=== PATIENT | female | born 1990 | race Caucasian/White ===

== ENCOUNTER 2023-02-04 02:28 | Inpatient (IN) ==
[2023-02-04] MEDS ORDERED: LIDOCAINE 1% LOCAL 20 ML VIAL INFIL PRN (04:37)
[2023-02-04] MEDS ORDERED: OXYTOCIN 30 UNITS/500 ML BAG IV PRN ×3 (04:37→18:11)
--- NOTE | 2023-02-04 08:10 | History & Physical Report ---
Date of Service February 04, 2023 Assessment & Plan (1) : Plan Will start Oxytocin Admission and Anticipated Discharge Date Admission Date: February 04, 2023 History of Present Illness Chief Complaint: spontaneous rupture of membranes Primary Care Provider: NO PCP 32 F P0000 at 38.5 weeks with SROM clear fluid at 0111 this morning and onset of contractions. GBS is negative Allergies Allergy/AdvReac Type Severity Reaction Status Date / Time [place] nut Allergy Mild Hives Verified 02/04/23 02:53 tree nut Allergy Unknown tree nuts Verified 12/28/21 08:52 = hives No Known Drug Allergies Allergy Hives Uncoded 02/04/23 02:53 Home Medications Medication Instructions Recorded Confirmed Type Vitron-C 1 tab PO BID 02/04/23 02/04/23 History hvapocew-[id number] 1 mg 1 tab PO DAILY 02/04/23 02/04/23 History tablet sertraline 25 mg tablet 25 mg PO DAILY 02/04/23 02/04/23 History Patient History Medical History DVT (deep vein thrombosis) in Surgical History History of tooth extraction Family History Family/Other No significant family history Denies family history of Colon cancer Ovarian cancer Diabetes Myocardial infarction Breast cancer Social History Smoking Status: Never smoker Hx Alcohol Use: No Hx Substance Use: No Preferred Language: Macedonian Communication Ability: Effective Signal Fitter Required: No Beliefs That Will Affect Care: None marital status: Current Living Situation: Spouse Other Information That Helps Us Care for You: No Feels Safe at Home: Yes Safety Concerns: Feels Safe At This Time Assistive Devices: None OB History primip PLEAT TAPER History neg Review of Systems All systems reviewed & are unremarkable except as noted in HPI & below Physical Exam Constitutional: WD/WN, vitals as above Eyes: PERRL, conjunctivae normal, anicteric sclerae Cardiovascular: RRR, no murmur, no edema Gastrointestinal (Abdomen): normal bowel sounds, soft, nontender, no hepatosplenomegaly Musculoskeletal: Extremities: extremities normal to inspection Skin: no rashes, warm and dry Neurologic: patellar DTR's 2+ bilat, sensation intact Psychiatric: A+Ox3, euthymic affect Genitourinary: no vaginal lesions, no adnexal mass Manual OB Exam: + cervical dilation 1 cm and 2 cm, + cervical effacement 70%, + station high and + amniotic fluid clear OB Exam Monitor Tracing: + external FHT monitor used, + external uterine monitor used, + category I and + normal FHT variability cervix posterio/soft Results & Data Vital Signs (Past 12 Hours) Vital Signs Temp Pulse Resp BP 02/04/23 06:43 37.2 C 02/04/23 05:00 37.0 C 02/04/23 02:56 37.0 C 18 02/04/23 07:50 36.8 C 02/04/23 06:45 67 116/75 02/04/23 02:50 67 131/82 Code Status & VTE Plan VTE Prophylaxis Plan VTE Prophylaxis will be ordered: No Monitoring External Monitor Cat 1
[2023-02-04] MEDS: LACTATED RINGER'S 1,000 ML IV PRN ×3 (08:16→17:17)
[2023-02-04 09:29] LABS: Hematocrit (blood only) 32.6 % (37.0-47.0); Mean Corpuscular Volume 89.3 fL (80.0-100.0); Mean Platelet Volume 9.4 fL (9.4-12.4); Platelet Count 199 K/uL (130-400); RDW Coefficient of Variation 12.4 % (11.5-14.5); RDW Standard Deviation 40.3 fL (36.4-46.3); Red Blood Count 3.65 M/uL (4.20-5.40); White Blood Count 11.09 K/ul (4.8-10.8)
[2023-02-04 09:31] LABS: Hemoglobin 11.5 g/dl (12.0-16.0)
[2023-02-04 09:32] LABS: Mean Corpuscular Hemoglobin 32.4 pg (25.0-34.0); Mean Corpuscular Hgb Conc 35.9 g/dL (32.0-36.0)
[2023-02-04] MEDS ORDERED: BUTORPHANOL TARTRATE 1 MG/ML VIAL IV PRN (10:45)
[2023-02-04] MEDS ORDERED: ePHEDrine sulfate 50 MG/ML AMP ONE (13:06)
[2023-02-04] MEDS ORDERED: fentaNYL citrate PF 100 MCG/2 ML VIAL ONE (13:06)
[2023-02-04] MEDS ORDERED: BUPIVACAINE 0.25% PF 30 ML VIAL ONE (13:07)
[2023-02-04] MEDS ORDERED: LIDOCAINE 2%/EPINEPHRINE 1:200,000 20 ML PF ONE (13:07)
[2023-02-04] MEDS ORDERED: SODIUM CHLORIDE 0.9% PF INJ 10 ML VIAL ONE (13:07)
[2023-02-04] MEDS ORDERED: fentaNYL 2MCG/ML ROPIVACAINE 1.25MG/ML 100 ML BAG EPI ONE (13:08)
[2023-02-04] MEDS ORDERED: NALOXONE HCL 1 MG in SODIUM CHLORIDE 0.9% 1000ML 1,000 ML IV PRN (13:37)
[2023-02-04] MEDS ORDERED: fentaNYL citrate PF 100 MCG/2 ML VIAL EPI PRN (13:37)
[2023-02-04] MEDS ORDERED: ePHEDrine sulfate 50 MG/ML AMP IV PRN (13:37)
[2023-02-04] MEDS ORDERED: SODIUM CHLORIDE 0.9% PF INJ 10 ML VIAL EPI STA (13:37)
[2023-02-04] MEDS ORDERED: fentaNYL citrate PF 100 MCG/2 ML VIAL EPI STA (13:37)
[2023-02-04] MEDS ORDERED: LIDOCAINE 2% MPF LOCAL 5 ML VIAL EPI PRN (13:37)
[2023-02-04] MEDS ORDERED: NALOXONE HCL 0.4 MG/1 ML VIAL/CARP IV PRN (13:37)
[2023-02-04] MEDS ORDERED: BUPIVACAINE 0.25% PF 30 ML VIAL EPI STA (13:37)
[2023-02-04] MEDS ORDERED: ROPIVACAINE 0.5% PF 5 MG/ML 20 ML VIAL EPI PRN (13:37)
[2023-02-04] MEDS ORDERED: ONDANSETRON INJ 2 MG/ML 2 ML VIAL IV PRN (13:37)
[2023-02-04] MEDS ORDERED: BUPIVACAINE 0.25% PF 30 ML VIAL EPI PRN (13:37)
[2023-02-04] MEDS ORDERED: NALBUPHINE HCL INJ 10 MG/ML AMP IV PRN (13:37)
[2023-02-04] MEDS ORDERED: fentaNYL 2MCG/ML ROPIVACAINE 1.25MG/ML 100 ML BAG EPI PRN (13:37)
[2023-02-04] MEDS ORDERED: SODIUM CHLORIDE 0.9% PF INJ 10 ML VIAL EPI PRN (13:37)
[2023-02-04] MEDS ORDERED: LIDOCAINE 2%/EPINEPHRINE 1:200,000 20 ML PF EPI STA (13:37)
[2023-02-04] MEDS ORDERED: diphenhydrAMINE 50 MG/ML VIAL IV PRN (13:37)
--- NOTE | 2023-02-04 13:37 | Anesthesiology Consultation ---
Date of Service February 04, 2023 Assessment & Plan Chart Review Chart Review: Patient NOT seen in Pre Admission Testing and Acceptable Risk for Labor Epidural Consults Requested none ASA ASA2 Proposed Anesthesia Anesthesia Type: Labor Epidural Risk / Benefits Reviewed With: PT / POA / Parent / Guardian, Accepts Plan and Informed Consent Obtained History Height/Weight Height: 5 ft 6 in Weight: 83.007 kg Allergies Allergy/AdvReac Type Severity Reaction Status Date / Time [place] nut Allergy Mild Hives Verified 02/04/23 02:53 tree nut Allergy Unknown tree nuts Verified 12/28/21 08:52 = hives No Known Drug Allergies Allergy Hives Uncoded 02/04/23 02:53 Medications Home Medications Medication Instructions Recorded Confirmed Last Taken Vitron-C 1 tab PO BID 02/04/23 02/04/23 Unknown exvcrwtd-mkn-Gp-FA 1 mg 1 tab PO DAILY 02/04/23 02/04/23 Unknown tablet sertraline 25 mg tablet 25 mg PO DAILY 02/04/23 02/04/23 02/03/23 08:00 25 mg Active Medications Generic Name Dose Route Start Last Admin Trade Name Freq PRN Reason Stop Dose Admin Butorphanol Tartrate 1 mg 02/04/23 10:45 02/04/23 10:58 Butorphanol Tartrate 1 Mg/Ml Vial IV 03/06/23 10:44 1 mg Q2HWA PRN Administration Pain Lactated Ringer's 1,000 mls @ 125 mls/hr 02/04/23 04:37 02/04/23 13:28 Lr IV 02/06/23 04:36 999 mls/hr .Q8H PRN Administration L&D Protocol Protocol Oxytocin 30 units in 500 mls @ 9 mls/hr 02/04/23 08:00 02/04/23 12:12 Pitocin IV 02/06/23 07:59 0.54 units/hr .Q24H PRN 9 mls/hr Labor Induction/Augmentation Titration Protocol 0.54 UNITS/HR Past Medical History Medical History DVT (deep vein thrombosis) in Exercise / Class Metabolic Activity II 4-5 Yardwork/Stairs/Walk up hill Past Family History Family History Family/Other No significant family history Denies family history of Colon cancer Ovarian cancer Diabetes Myocardial infarction Breast cancer Past Surgical History Surgical History History of tooth extraction Past Anesthesia History No Hx of Anesthesia Complications and No Family Hx of Anesthesia Complications History of PONV No Hx of PONV and No Hx of Motion Sickness Social History Smoking Status: Never smoker Hx Alcohol Use: No Hx Substance Use: No Physical Exam Vital Signs Last Vital Signs Temp 36.8 C 02/04/23 12:45 Pulse 94 H 02/04/23 13:34 Resp 18 02/04/23 02:56 BP 115/66 02/04/23 12:13 Pulse Ox 100 02/04/23 13:34 ENMT Mouth: no dentition abnormality Thyromental Distance: > or= 3.5 Finger Breadths Mallampati Class: II Neck normal visual inspection Respiratory normal respiratory effort Auscultation: lungs clear to auscultation bilaterally Cardiovascular Rate/Rhythm: regular rate and regular rhythm Psychiatric Orientation: alert Testing Laboratory Results 02/04/23 05:00
--- NOTE | 2023-02-04 17:01 | Labor Progress Brief Note ---
Date of Service February 04, 2023 Assessment & Plan Admission and Anticipated Discharge Date Admission Date: February 04, 2023 Physical Exam Genitourinary: Manual OB Exam: + cervical dilation 10 cm, + cervical effacement 100%, + station + 1 and + amniotic fluid clear OB Exam Monitor Tracing: + external FHT monitor used, + external uterine monitor used, + category I and + normal FHT variability Results & Data Vital Signs (Past 12 Hours) Vital Signs Temp Pulse Resp BP Pulse Ox 02/04/23 06:43 37.2 C 02/04/23 16:54 59 L 99 02/04/23 16:51 59 L 112/63 02/04/23 16:49 61 98 02/04/23 16:45 18 02/04/23 16:45 18 02/04/23 16:44 59 L 99 02/04/23 16:39 62 100 02/04/23 16:36 60 111/61 02/04/23 16:30 18 02/04/23 16:30 18 02/04/23 16:34 57 L 100 02/04/23 16:29 74 100 02/04/23 16:15 18 02/04/23 16:15 18 02/04/23 16:24 60 99 02/04/23 16:21 65 106/59 L 02/04/23 16:19 65 100 02/04/23 16:14 60 100 02/04/23 16:09 60 100 02/04/23 16:07 60 123/71 02/04/23 16:04 57 L 100 02/04/23 15:59 62 100 02/04/23 15:54 62 100 02/04/23 15:51 61 116/70 02/04/23 15:49 62 100 02/04/23 15:45 18 02/04/23 15:45 18 02/04/23 15:30 18 02/04/23 15:30 18 02/04/23 15:44 64 100 02/04/23 15:39 64 100 02/04/23 15:36 58 L 115/63 02/04/23 15:34 64 99 02/04/23 15:29 61 99 02/04/23 15:24 70 98 02/04/23 15:22 60 108/62 02/04/23 15:19 62 99 02/04/23 15:14 69 100 02/04/23 15:09 62 99 02/04/23 15:04 60 99 02/04/23 15:00 36.9 C 18 02/04/23 15:03 76 107/61 02/04/23 14:59 68 97 02/04/23 14:57 68 108/64 02/04/23 14:54 63 97 02/04/23 14:51 81 107/63 02/04/23 14:49 71 97 02/04/23 14:46 72 111/60 02/04/23 14:44 68 98 02/04/23 14:41 67 107/62 02/04/23 14:39 71 99 02/04/23 14:37 63 111/63 02/04/23 14:34 71 98 02/04/23 14:31 82 110/62 02/04/23 14:29 71 99 02/04/23 14:26 70 110/64 02/04/23 14:24 64 97 02/04/23 14:22 65 112/62 02/04/23 14:19 64 98 02/04/23 14:16 63 109/63 02/04/23 14:14 97 02/04/23 14:14 65 02/04/23 14:14 60 112/67 02/04/23 14:09 64 98 02/04/23 14:06 59 L 116/65 02/04/23 14:04 98 02/04/23 14:04 69 02/04/23 14:04 63 119/68 02/04/23 14:02 67 122/67 02/04/23 13:59 63 99 02/04/23 14:00 64 121/78 02/04/23 13:58 64 130/82 02/04/23 13:56 67 128/82 02/04/23 13:54 66 127/78 100 02/04/23 13:52 61 129/77 02/04/23 13:49 69 100 02/04/23 13:44 81 100 02/04/23 13:39 78 100 02/04/23 13:34 94 H 100 02/04/23 13:29 65 99 02/04/23 13:24 72 100 02/04/23 12:45 36.8 C 02/04/23 12:13 56 L 115/66 02/04/23 11:05 60 107/62 02/04/23 09:42 63 124/76 02/04/23 08:20 67 127/75 02/04/23 07:50 36.8 C 02/04/23 06:45 67 116/75
[2023-02-04] MEDS ORDERED: BENZOCAINE 20% SPRY 85 APPLN/85 GM CAN EXT PRN (18:11)
[2023-02-04] MEDS ORDERED: bisacodyL 10 MG SUPP PR PRN (18:11)
[2023-02-04] MEDS ORDERED: DIPHTHERIA/TETANUS/PERTUSSIS Vaccine (Tdap, Age 7+yrs) 0.5mL SYR/VL IM ONE (18:11)
[2023-02-04] MEDS ORDERED: ACETAMINOPHEN 325 MG TAB PO PRN (18:11)
[2023-02-04] MEDS ORDERED: HYDROCORTISONE ACETATE 25 MG SUPP PR PRN (18:11)
--- NOTE | 2023-02-04 18:13 | Delivery Summary ---
Vaginal Delivery Summary Date of Service February 04, 2023 Vaginal Delivery Summary Delivery Note live male CONSTANTINE over intact perineum with delayed cord clamping and 8/9 weight pending. Cord blood obtained followed by spontaneous delivery of intact placenta. No tears. EBL 150 ml. Final sponge and instrument are correct. Mom and baby stable.
[2023-02-04] MEDS ORDERED: LACTATED RINGER'S 1,000 ML IV SCH (18:15)
--- NOTE | 2023-02-04 19:58 | Anesthesia Procedure Note ---
Date of Service February 04, 2023 Anesthesia Post Epidural Note Vital Signs Vital Signs: Temp Pulse Resp BP Pulse Ox 37.1 C 93 H 16 132/72 93 02/04/23 19:31 02/04/23 19:51 02/04/23 19:31 02/04/23 19:51 02/04/23 18:06 Pain Intensity Bilateral Back: Pain Intensity: 0 Notes Mental Status: alert / awake / arousable Nausea / Vomiting: adequately controlled Pain: adequately controlled Airway Patency, RR, SpO2: stable & adequate BP & HR: stable & adequate Hydration State: stable & adequate Neuraxial Anesthesia: was administered and sensory block is resolving Anesthetic Complications: no major complications apparent and Pt Satisfied with anesthetic care Epidural: Removed without complications and With tip intact
[2023-02-04] MEDS: SERTRALINE HCL 50 MG TABLET PO SCH (21:13)
[2023-02-04] MEDS: ASCORBIC ACID 500 MG TAB PO SCH (21:13)
[2023-02-04] MEDS: DOCUSATE SODIUM 100 MG CAP PO SCH (21:18)
[2023-02-05] MEDS: IBUPROFEN 600 MG TAB PO PRN ×3 (04:28→19:51)
[2023-02-05 06:10] LABS: Hematocrit (blood only) 28.7 % (37.0-47.0); Hemoglobin 10.7 g/dl (12.0-16.0); Mean Corpuscular Hemoglobin 33.4 pg (25.0-34.0); Mean Corpuscular Hgb Conc 37.3 g/dL (32.0-36.0); Mean Corpuscular Volume 89.7 fL (80.0-100.0); Mean Platelet Volume 9.4 fL (9.4-12.4); Platelet Count 193 K/uL (130-400); RDW Coefficient of Variation 12.6 % (11.5-14.5); RDW Standard Deviation 41.2 fL (36.4-46.3); White Blood Count 11.19 K/ul (4.8-10.8)
[2023-02-05] MEDS: PRENATAL VITAMIN 1 TAB PO SCH (07:59)
[2023-02-05] MEDS: ASCORBIC ACID 500 MG TAB PO SCH ×2 (08:00→19:51)
[2023-02-05] MEDS: DOCUSATE SODIUM 100 MG CAP PO SCH ×2 (08:00→19:50)
[2023-02-05] MEDS: FERROUS SULFATE 325 MG TAB PO SCH ×2 (08:00→19:50)
[2023-02-05] MEDS ORDERED: PRENATAL VITAMIN 1 TAB PO SCH (08:00)
[2023-02-05] MEDS: SERTRALINE HCL 50 MG TABLET PO SCH (09:40)
[2023-02-05] MEDS ORDERED: bisacodyL 5 MG TABEC PO SCH (20:00)
[2023-02-06 05:56] LABS: Hematocrit (blood only) 28.2 % (37.0-47.0); Hemoglobin 10.3 g/dl (12.0-16.0)
[2023-02-06] MEDS: IBUPROFEN 600 MG TAB PO PRN (08:07)
[2023-02-06] MEDS: DOCUSATE SODIUM 100 MG CAP PO SCH (08:08)
[2023-02-06] MEDS: PRENATAL VITAMIN 1 TAB PO SCH (08:08)
[2023-02-06] MEDS: SERTRALINE HCL 50 MG TABLET PO SCH (08:08)
[2023-02-06] MEDS: ASCORBIC ACID 500 MG TAB PO SCH (08:08)
[2023-02-06] MEDS: FERROUS SULFATE 325 MG TAB PO SCH (08:08)
== END 2023-02-06 11:52 | disposition home or self-care (01) | DRG 807 ==
LOC: OPB 02:28 → 4S1 02:30 → 4E2 20:38